=== PATIENT | female | born 1990 | race Caucasian/White ===

== ENCOUNTER 2019-01-23 23:28 | Emergency (ER) | payer SELFPAY ==
--- NOTE | 2019-01-24 00:24 | ED Physician Chart ---
ED Chief Complaint/HPI - Patient Information Date Seen:: 01/23/19 Time Seen:: 23:45 Chief Complaint:: Transient numbnes in both hands and mouth History of Present Illness:: Pt is primarily [place] speaking. Interpretation is provided by her boyfriend Stefan per pt's request. Pt reportedly had transient numbness in both hands and perioral region that has resolved. Pt reportedly had use of methamphetamine prior to onset of her numbness. Pt now feels well without pain or discomfort. Allergies:: Allergies Allergy/AdvReac Type Severity Reaction Status Date / Time No Known Allergies Allergy Verified 01/23/19 23:36 Vitals:: Vital Signs - 8 hr 01/23/19 23:30 Temp 98.7 F HR 94 RR 18 BP 136/86 O2 Sat % 100 Historian:: Patient Family MD/PCP:: unknown. LMP:: now. Review:: Nurse's Note Reviewed ED Review of Systems - Review of Systems General/Constitutional: No fever, No weight loss, No weakness, No edema, No loss of appetite Skin: No skin lesions, No rash, No bruising Head: No headache, No light-headedness Eyes: No loss of vision, No pain, No diplopia ENT: No earache, No nasal drainage, No sore throat Neck: No neck pain, No stiffness Cardio Vascular: No chest pain, No palpitations, No edema Pulmonary: No SOB, No cough, No wheezing GI: No nausea, No vomiting, No diarrhea, No pain G/U: No dysuria, No frequency, No hematuria Die Cast Engineer: No vaginal discharge, No abnormal vaginal bleed (Pt is on her period at the present.) Musculoskeletal: No bone or joint pain Endocrine: No polyuria, No polydipsia Psychiatric: No prior psych history, No depression, No suicidal ideation, No homicidal ideation, No auditory hallucination, No visual hallucination Hematopoietic: No bruising, No lymphadenopathy Allergic/Immuno: No urticaria, No angioedema Neurological: No syncope, No focal symptoms, No weakness, No headache, No seizure, No dizziness, No confusion ED Past Medical History - Past Medical History Past Medical History: No significant medical hx Family History: Heart disease, Diabetes Melitus, HTN, Cancer, DVT/PE Social History: Smoker (Pt has been informed about health risks associated with chronic tobacco use and has been advised to stop. Pt has been encouraged to enroll in a smoking cessation program. Pt acknowledges understanding.), Alcohol (occasional), Illicit Drug Use (with methamphetamine. Pt has been informed about health risks associated with illicit drug use and has been advised to stop. Pt has been encouraged to enroll in a drug rehab program. Pt acknowledges understanding.), Single, Other (lives with her mother.) Employment:: unemployed. Surgical History: None Psychiatricy History: None Medication: None Family Medical History - Family Member Mother History Unknown: Yes Ethnicity: ED Physical Exam - Physical Examination General/Constitutional: Awake, Well-developed, well-nourished (female), No distress, Non-toxic appearing Other Gen/Cons comments:: Breathes comfortably, speaks clearly, and interacts appropriately. Head: Atraumatic Eyes: Lids, conjuctiva normal, PERRL, EOMI Skin: No rash, No skin lesions, Well hydrated, No lymphadenopathy ENMT: External ears, nose nl, Nasal exam nl, Oropharynx nl Neck: Nontender, Full ROM w/o pain, No JVD, No nuchal rigidity, No bruit, No mass, No stridor Respiratory: Nl effort/Exclusion, Clear to Auscultation, No Wheeze/Rhonchi/Rales Cardio Vascular: RRR, NL S1 S2, Carotid/Femoral/Distal pulses equal bilaterally GI: No tenderness/rebounding/guarding, No organomegaly, Normal BS's, Nondistended, No mass/bruits Other GI comments:: abdomen is soft. : No CVA tenderness Extremities: No edema Neuro/Psych: Alert/oriented (oriented x 3), Mood normal, No focal deficits ED Labs/Radiology/EKG Results - Lab Results Results: Laboratory Results - last 24 hr 01/24/19 01/24/19 01/24/19 00:00 00:00 00:30 WBC 9.1 RBC 5.07 Hgb 13.1 Hct 39.2 L MCV 77.3 L MCH 25.9 L MCHC Differential 33.5 RDW 14.6 Plt Count 314 MPV 7.6 Neutrophils % 75.3 Lymphocytes % 18.4 L Monocytes % 5.6 Eosinophils % 0.3 Basophils % 0.4 Sodium Potassium Chloride Carbon Dioxide Anion Gap BUN Creatinine Est GFR ( Amer) Est GFR (Non-Af Amer) BUN/Creatinine Ratio Glucose Calcium Total Bilirubin AST ALT Alkaline Phosphatase Total Protein Albumin Globulin Albumin/Globulin Ratio Urine Test NEGATIVE Urine Opiates Screen NEGATIVE Urine Methadone Screen NEGATIVE Ur Barbiturates Screen NEGATIVE Ur Tricyclics Screen NEGATIVE Ur Phencyclidine Scrn NEGATIVE Amphetamines Screen POSITIVE H U Methamphetamines Scrn NEGATIVE U Benzodiazepines Scrn NEGATIVE U Cocaine Metab Screen NEGATIVE U Cannabinoids Screen NEGATIVE 01/24/19 00:30 WBC RBC Hgb Hct MCV MCH MCHC Differential RDW Plt Count MPV Neutrophils % Lymphocytes % Monocytes % Eosinophils % Basophils % Sodium 136 Potassium 3.5 Chloride 103 Carbon Dioxide 23.9 Anion Gap 12.6 BUN 7 Creatinine 0.6 Est GFR ( Amer) > 60.0 Est GFR (Non-Af Amer) > 60.0 BUN/Creatinine Ratio 11.7 Glucose 115 H Calcium 9.0 Total Bilirubin 0.8 AST 9 L ALT 7 Alkaline Phosphatase 61 Total Protein 7.1 Albumin 4.3 Globulin 2.8 Albumin/Globulin Ratio 1.5 Urine Test Urine Opiates Screen Urine Methadone Screen Ur Barbiturates Screen Ur Tricyclics Screen Ur Phencyclidine Scrn Amphetamines Screen U Methamphetamines Scrn U Benzodiazepines Scrn U Cocaine Metab Screen U Cannabinoids Screen - Radiology Results Results: Laboratory Results - last 24 hr 01/24/19 01/24/19 01/24/19 00:00 00:00 00:30 WBC 9.1 RBC 5.07 Hgb 13.1 Hct 39.2 L MCV 77.3 L MCH 25.9 L MCHC Differential 33.5 RDW 14.6 Plt Count 314 MPV 7.6 Neutrophils % 75.3 Lymphocytes % 18.4 L Monocytes % 5.6 Eosinophils % 0.3 Basophils % 0.4 PT INR PTT (Actin FS) Sodium Potassium Chloride Carbon Dioxide Anion Gap BUN Creatinine Est GFR ( Amer) Est GFR (Non-Af Amer) BUN/Creatinine Ratio Glucose Calcium Total Bilirubin AST ALT Alkaline Phosphatase Total Protein Albumin Globulin Albumin/Globulin Ratio Urine Test NEGATIVE Urine Opiates Screen NEGATIVE Urine Methadone Screen NEGATIVE Ur Barbiturates Screen NEGATIVE Ur Tricyclics Screen NEGATIVE Ur Phencyclidine Scrn NEGATIVE Amphetamines Screen POSITIVE H U Methamphetamines Scrn NEGATIVE U Benzodiazepines Scrn NEGATIVE U Cocaine Metab Screen NEGATIVE U Cannabinoids Screen NEGATIVE 01/24/19 01/24/19 00:30 00:30 WBC RBC Hgb Hct MCV MCH MCHC Differential RDW Plt Count MPV Neutrophils % Lymphocytes % Monocytes % Eosinophils % Basophils % PT 9.9 INR 0.95 PTT (Actin FS) 28.7 Sodium 136 Potassium 3.5 Chloride 103 Carbon Dioxide 23.9 Anion Gap 12.6 BUN 7 Creatinine 0.6 Est GFR ( Amer) > 60.0 Est GFR (Non-Af Amer) > 60.0 BUN/Creatinine Ratio 11.7 Glucose 115 H Calcium 9.0 Total Bilirubin 0.8 AST 9 L ALT 7 Alkaline Phosphatase 61 Total Protein 7.1 Albumin 4.3 Globulin 2.8 Albumin/Globulin Ratio 1.5 Urine Test Urine Opiates Screen Urine Methadone Screen Ur Barbiturates Screen Ur Tricyclics Screen Ur Phencyclidine Scrn Amphetamines Screen U Methamphetamines Scrn U Benzodiazepines Scrn U Cocaine Metab Screen U Cannabinoids Screen ED Septic Shock - . Is Septic Shock (SBP<90, OR Lactate>4 mmol\L) present?: No - <6hrs of presentation: Vital Signs: Vital Signs - 8 hr 01/23/19 23:30 Temp 98.7 F HR 94 RR 18 BP 136/86 O2 Sat % 100 ED Reassessment (Disposition) - Reassessment Reassessment:: 0112 Pt feels well without recurrent oral or hand numbness. Lab findings just became available and have been reviewed with pt. Pt requests to go home now and does not want further observation/management in hospital. Aftercare instructions have been given. Interpretation by her boyfriend Stefan who will also drive her home. 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 Stable and currently asymptomatic. - Aftercare/Follow up Instructions Aftercare/Follow-Up Instructions:: Refer to Discharge Instructions Notes:: Bed rest for today. Please stop substance abuse and enroll in a drug detox program. F/[facility] Dr. Chapin [facility] for [facility]hek wit repeat lab studies:CBC, CMP. Return to click immediately if condiition sworsens or if any further qestions/problem. Medication Prescribed:: none - Patient Disposition Discharge/Transfer:: Home Time:: 01:20 Condition at Disposition:: Stable, Improved
[2019-01-24 00:43] LABS: % EOSINOPHILS 0.3 % (0.0-5.0); LYMPHOCYTE ABSOLUTE 1.7 Th/cmm (1.5-3.0); MONOCYTE ABSOLUTE 0.5 Th/cmm (0.3-1.0)
[2019-01-24 00:47] LABS: % BASOPHILS 0.4 % (0.0-2.0); % LYMPHOCYTES 18.4 % (20.0-50.0); % MONOCYTES 5.6 % (2.0-10.0); % NEUTROPHILS 75.3 % (40.0-80.0); HEMATOCRIT 39.2 % (41.0-60); HEMOGLOBIN 13.1 gm/dL (12-16); MEAN CELL VOLUME 77.3 fl (81-100); MEAN CORPUSCULAR HEMOGLOBIN 25.9 pg (27.0-31.0); MEAN CORPUSCULAR HGB CONC 33.5 pg (28.0-36.0); NEUTROPHILE ABSOLUTE 6.9 Th/cmm (1.8-8.0); PLATELET COUNT 314 Th/cmm (150-400); RED BLOOD COUNT 5.07 Mil/cmm (3.80-5.10); RED CELL DISTRIBUTION WIDTH 14.6 % (11.5-20.0); WHITE BLOOD COUNT 9.1 Th/cmm (4.8-10.8)
[2019-01-24 00:58] LABS: ALB/GLOB RATIO 1.5 (1.0-1.8); ALBUMIN 4.3 gm/dL (3.7-5.3); ALKALINE PHOSPHATASE 61 U/L (34-104); ANION GAP 12.6 (7.0-16.0); BILIRUBIN,TOTAL 0.8 mg/dL (0.3-1.0); BUN - UREA NITROGEN 7 mg/dL (7-25); CARBON DIOXIDE 23.9 mEq/L (21.0-31.0); CHLORIDE 103 mEq/L (98-107); CREATININE - SERUM 0.6 mg/dL (0.6-1.2); GFR AFRICAN-AMERICAN > 60.0 ml/min (>90); GFR NON AFRICAN-AMERICAN > 60.0 ml/min; GLUCOSE 115 mg/dL (70-105); POTASSIUM SERUM 3.5 mEq/L (3.5-5.1); SGOT 9 U/L (13-39); SGPT/ALT 7 U/L (7-52); SODIUM SERUM 136 mEq/L (136-145); TOTAL PROTEIN,SERUM 7.1 gm/dL (6.0-8.3)
[2019-01-24 01:05] LABS: AMPHETAMINE URINE POSITIVE (NEGATIVE); BARBITURATES URINE NEGATIVE (NEGATIVE); BENZODIAZEPINES QUAL URINE NEGATIVE (NEGATIVE); CANNABINOID THC NEGATIVE (NEGATIVE); COCAINE METABOLITE QUAL URINE NEGATIVE (NEGATIVE); METHADONE URINE NEGATIVE (NEGATIVE); METHAMPHETAMINES QUAL URINE NEGATIVE (NEGATIVE); OPIATES (MORPHINE) QUAL. URINE NEGATIVE (NEGATIVE); PHENCYCLIDINE (PCP) URINE NEGATIVE (NEGATIVE); TRICYCLICS (TCA) QUAL. URINE NEGATIVE (NEGATIVE)
[2019-01-24 01:08] LABS: INR 0.95 (0.5-1.4)
== END 2019-01-24 00:45 | disposition home or self-care (01) ==
LOC: ER 23:28
DX: F15.10 Other stimulant abuse, uncomplicated (principal); R20.2 Paresthesia of skin; F17.200 Nicotine dependence, unspecified, uncomplicated
CPT/HCPCS: 36415-UA; 80053-TC; 80307; 81025-TC; 85025-TC; 85610-TC; Z7502